=== PATIENT | male | born 1945 | race Caucasian/White ===

== ENCOUNTER → 2017-05-29 | Outpatient (CLI) | payer MEDICARE, OTHER ==
[~2017-05-29] MED LIST: ASCO-182 PO; CHOL200038 PO; CYAN25004 PO; DOC100 PO; ETAN50DI SQ; FEXO-72 PO; GLUC-198 PO; LORA10CA3 PO; LUTE20CA11 PO; MULT1CAP59 PO; OMEG1CAP35 PO; PER PO
[2017-05-29 10:52] LABS: PLATELET COUNT, AUTOMATED 212 K/uL (150-450)
== END ==
LOC: LAB 10:39
PROVIDERS: ATTEND Dermatology MOHS-Micrographic Surgery
DX: L40.0 Psoriasis vulgaris (principal)
CPT/HCPCS: 36415; 85025

== ENCOUNTER → 2017-11-12 | Outpatient (CLI) | payer MEDICARE, OTHER ==
[2017-11-12 12:58] LABS: PLATELET COUNT, AUTOMATED 215 K/uL (150-450)
== END ==
LOC: LAB 12:40
PROVIDERS: ATTEND Dermatology MOHS-Micrographic Surgery
DX: L40.0 Psoriasis vulgaris (principal)
CPT/HCPCS: 36415; 85025

== ENCOUNTER → 2017-12-03 | Outpatient (CLI) | payer MEDICARE, OTHER ==
[2017-12-03 07:34] LABS: PLATELET COUNT, AUTOMATED 189 K/uL (150-450)
--- NOTE | 2017-12-03 07:36 | EKG ---
FACILITY: [facility] - [place] PATIENT NAME: JAYSON LUTZ : [id number] MR: [id number] V: [id number] EXAM DATE: ORDERING PHYSICIAN: MIGUELITO GONZÁLES TECHNOLOGIST: DINORAH Pascual Reason : PREOP Blood Pressure : / mmHG Vent. Rate : 062 BPM Atrial Rate : 062 BPM P-R Int : 152 ms QRS Dur : 088 ms QT Int : 416 ms P-R-T Axes : 080 076 063 degrees QTc Int : 422 ms Sinus rhythm with occasional premature ventricular complexes Otherwise normal ECG No previous ECGs available Confirmed by Albino Corral ([id number]) on 12/03/2017 10:43:23 AM Referred By: Confirmed By:Albino Peralta
--- NOTE | 2017-12-03 08:11 | RADIOLOGY IMAGING REPORT ---
FAC[place] [facility] [place]IENT NAME: Henrry Bosch : 1945 MR: [id number] V: [id number] EXAM DATE: ORDERING PHYSICIAN: MIGUELITO GONZÁLES TECHNOLOGIST: Location: [facility] [place] Patient: Henrry Bosch : 1945 Visit/Account:[id number] Date of Sevice: 12/03/2017 Chest 2 views: HISTORY: Broke ribs 3 months ago. Recheck. No pain, shortness of breath or cough. COMPARISON: 09/07/2010. There are no other more recent priors. FINDINGS: Frontal and lateral chest: Cardiomediastinal silhouette is within normal limits. There is n o infiltrate or pleural effusion. No pneumothorax. Pulmonary vasculature is normal. Rib fractures are not well seen on this study. IMPRESSION: No evidence of acute cardiopulmonary abnormality. Rib fractures are not well demonstrated on this study. Report Dictated By: Melanie Cevallos MD at 12/03/2017 8:02 AM Report E-Signed By: Melanie Cevallos MD at 12/03/2017 8:07 AM WSN:[id number]
== END ==
LOC: RAD 07:09
PROVIDERS: ATTEND Orthopaedic Surgery Hand Surgery
DX: I49.3 Ventricular premature depolarization (principal); M25.561 Pain in right knee; M19.90 Unspecified osteoarthritis, unspecified site; Z01.812 Encounter for preprocedural laboratory examination
CPT/HCPCS: 36415; 71046; 81001; 82040; 82247; 82310; 82374; 82435; 82565; 82947; 84075; 84132; 84155; 84295; 84450; 84460; 84520; 85025; 93005

== ENCOUNTER 2017-12-27 03:00 | Inpatient (IN) | payer MEDICARE, OTHER ==
[2017-12-26 13:30] LABS: INR 1.01
[2017-12-27] VITALS (14 sets, daily range): BP systolic 118–169; BP diastolic 76–100
[~2017-12-27] VITALS: Ht 170.2 cm; Wt 61.7 kg
[~2017-12-27 03:00] MED LIST changes: +ACET-2146 PO; +FEXO-67 PO
--- NOTE | 2017-12-27 08:12 | RADIOLOGY IMAGING REPORT ---
[place] [facility] [place] Henrry Bosch : 1945 MR: [id number] V: [id number] EXAM DATE: ORDERING PHYSICIAN: MIGUELITO GONZÁLES TECHNOLOGIST: Location: [facility] - [place] Patient: Henrry Bosch : 1945 Visit/Account:[id number] Date of Sevice: 12/20/2017 Exam type: LEGS BILAT STANDING HIPS-ANKLE Indication: Preop right total knee arthroplasty Comparison: None available Findings: Right lower extremity: No acute fracture or dislocation identified of the pelvis, hip, knee, femur, tibia/fibula. Mild dege nerative changes within the right femoral acetabular joint. Moderate medial tibiofemoral compartment joint space loss. Mild/moderate osteophytosis within the knee. Ankle mortise is symmetric. No vis ualized pelvic tilt. Leg length appears symmetric. Moderate degenerative changes within the visuali zed lower lumbar spine. Left knee: No acute fracture or dislocation identified of the pelvis, hip, knee, femur, tibia/fibula. Mild dege nerative changes within the right femoral acetabular joint. Mild medial tibiofemoral compartment tad nt space loss. Mild osteophytosis within the knee. Ankle mortise is symmetric. No visualized pelvi c tilt. Leg length appears symmetric. Impression: 1. No acute fracture or dislocation of the bilateral lower extremities. 2. Moderate degenerative changes within the right knee. Mild degenerative changes within the left k nee. Report Dictated By: Srinivasa Fuentes MD at 12/27/2017 8:05 AM Report E-Signed By: Srinivasa Fuentes MD at 12/27/2017 8:09 AM WSN:[email or web address]
[2017-12-27] MEDS ORDERED: fentaNYL CITR 100 MCG/2 ML AMP ONE (10:18)
[2017-12-27] MEDS ORDERED: LIDOCAINE MPF 1% 5 ML VIAL ONE (10:19)
[2017-12-27] MEDS ORDERED: PROPOFOL EMUL(*) 10MG/ML 20 ML 20 ML ONE (10:19)
[2017-12-27] MEDS ORDERED: PREGABALIN 75 MG CAPSULE PO ONE (10:45)
[2017-12-27] MEDS ORDERED: MIDAZOLAM 2 MG/2 ML VIAL IVP PRN (10:45)
[2017-12-27] MEDS ORDERED: LIDOCAINE/SOD BICARB 8.4% SYR ID ONE (10:45)
[2017-12-27] MEDS ORDERED: CELECOXIB 200 MG CAP PO ONE (10:45)
[2017-12-27] MEDS ORDERED: ACETAMINOPHEN 500 MG TAB PO ONE (10:45)
[2017-12-27] MEDS ORDERED: VANCOMYCIN 1 GM ADDVIAL 1 GM in NS(*) 0.9% 250 ML ADDVAN BAG 250 ML IVPB ONE (10:45)
[2017-12-27] MEDS ORDERED: NORMOSOL R SOLN(*) 1000 ML BAG 1,000 ML IV PRN (10:45)
[2017-12-27] MEDS ORDERED: TRANEXAMIC AC 1000 MG/10ML SDV 1,000 MG in DEXTROSE 5% 50 ML BAG 50 ML IV ONE (10:45)
[2017-12-27] MEDS ORDERED: FAMOTIDINE 20 MG TAB PO ONE (10:45)
[2017-12-27] MEDS ORDERED: cloNIDine EPIDUR INJ 100MCG/ML 40 MCG, ROPIVACAINE 0.5% 20 ML VIAL 25 ML, EPINEPHrine H... INJ ONE (10:45)
[2017-12-27] MEDS ORDERED: DEXAMETHASONE SOD PHOS 10MG/ML ONE (11:31)
[2017-12-27] MEDS ORDERED: ONDANSETRON 4 MG/2 ML VIAL ONE (11:31)
[2017-12-27] MEDS ORDERED: EPINEPHrine HCL 1 MG/ML AMP ONE (11:45)
[2017-12-27] MEDS ORDERED: NALOXONE HCL 0.4 MG/ML VIAL IVP PRN (14:05)
[2017-12-27] MEDS ORDERED: KCL/D5LR 20 MEQ/1000 ML PREMIX 1,000 ML IV PRN (14:05)
[2017-12-27] MEDS ORDERED: ONDANSETRON 4 MG/2 ML VIAL IVP PRN (14:05)
[2017-12-27] MEDS ORDERED: ACETAMINOPHEN 500 MG TAB PO PRN (14:05)
[2017-12-27] MEDS ORDERED: FLUSH 10 ML SYR IVP PRN (14:05)
[2017-12-27] MEDS ORDERED: MORPHINE SULFATE 30 MG PCA IV PRN (14:05)
[2017-12-27] MEDS ORDERED: MAGNESIUM CITRATE 300 ML BTL PO PRN (14:05)
[2017-12-27] MEDS ORDERED: diphenhydrAMINE 25 MG CAP PO PRN (14:05)
[2017-12-27] MEDS ORDERED: PROMETHAZINE 25 MG/ML 1 ML AMP IVP PRN (14:05)
--- NOTE | 2017-12-27 14:12 | RADIOLOGY IMAGING REPORT ---
FACILITY: [facility] - [place] PATIENT NAME: Henrry Bosch : 1945 MR: [id number] V: [id number] EXAM DATE: ORDERING PHYSICIAN: MIGUELITO GONZÁLES TECHNOLOGIST: Location: [facility] - [place] Patient: Henrry Bosch : 1945 Visit/Account:[id number] Date of Sevice: 12/27/2017 KNEE LIMITED RIGHT Indication: Postop right total knee arthroplasty Comparison: None available Findings: 2 views of the right knee demonstrating postoperative changes from right knee arthroplasty. No visua lized hardware complication. Postoperative gas within and adjacent to the joint. IMPRESSION: Unremarkable postoperative appearance of right knee arthroplasty. Report Dictated By: Srinivasa Fuentes MD at 12/27/2017 2:06 PM Report E-Signed By: Srinivasa Fuentes MD at 12/27/2017 2:08 PM WSN:[email or web address]
--- NOTE | 2017-12-27 15:40 | Hospitalist Progress Note ---
Subjective Progress Notes Subjective Patient seen post-op. Reviewed PMHx (psoriasis on Enbrel) and medications. At present he denies any problems - no CP/SOB/N/V. Physical Exam Vital Signs Date Time Temp Pulse Resp B/P (MAP) Pulse Ox O2 Delivery O2 Flow Rate FiO2 12/27/17 14:30 48 12 98 12/27/17 09:41 97.1 163/84 (110) Room Air General Appearance: Alert, Awake Cardiovascular: Regular Rate and Rhythm Respiratory: Clear to Auscultation GI: Soft and Non-Tender Result Diagram: 12/27/17 1350 Assessment and Plan Problems: (1) S/P knee replacement Status: Acute Assessment & Plan: He appears to have tolerated OR/anesthesia well. He has no history of DVT/PE. He will be on aspirin 325mg daily for DVT prophylaxis. (2) Psoriasis Status: Chronic Assessment & Plan: He has been managed with Enbrel - he did not take this week's dose and is planning to hold the next 2-3 weeks as well. (3) Elevated blood pressure reading Status: Acute Assessment & Plan: He has had some modest elevation of his BPs post-op. He report no history of HTN, but has had elevated readings in his physician's office occasionally. Will monitor for now. SATNAM DIAZ MD Dec 27, 2017 15:40
--- NOTE | 2017-12-27 19:13 | OPERATIVE REPORT 1 ---
EVENT DATE: December 27, 2017 SURGEON: Mauro Serra MD ANESTHESIOLOGIST: Allan Covarrubias MD ANESTHESIA: General plus spinal. FINANCIAL PLANNING ASSISTANT: CHRISTIANO Youssef PREOPERATIVE DIAGNOSIS Right knee degenerative joint disease. POSTOPERATIVE DIAGNOSIS Right knee degenerative joint disease. PROCEDURE PERFORMED Right total knee arthroplasty (85917) ESTIMATED BLOOD LOSS 50 INTRAVENOUS FLUIDS Crystalloid 1500, no colloid. TOURNIQUET TIME 69 minutes SPECIMENS None. COMPLICATIONS No complications. IMPLANTS USED DePuy Attune 5 right side rotating platform, femur cut at 6 degrees with a 6 rotating platform tibia, a 35 anatomic patella, and a 5 mm x size 5 rotating platform insert, all cemented. SUMMARY OF PROCEDURE The patient was brought into the operating room and placed on the OR table in the supine position. He was then positioned for his spinal and then placed back in the supine position for a light general anesthetic. The right lower extremity was prepped and draped in the usual sterile fashion. The limb was exsanguinated, and the tourniquet was inflated. A standard anterior utilitarian incision was made, followed by medial parapatellar arthrotomy. The articular cartilage was in poor condition as we would expect. There was [id number] contact medially and in some small areas of the patellofemoral joint. The fluid was clear. We did a medial metaphyseal release that was fairly conservative at first. We had also resected the ACL and the patellofemoral ligament. We removed the tissue anteriorly at the distal femur which was quite thick and cut a small portion of the fat pad away. Intramedullary guidance of the femur followed. We cut 9 mm off the end at 6 degrees. We then measured for size, and it appeared a size 5 would be best. It was between a 5 and a 6. We made the initial check on a 6, but it was definitely too tall, so we put the 5 on and then did our first cuts anteriorly. There was no notching. We then cut our chamfers and removed some additional osteophyte. We checked the cut angle using the guide, and it was fine, so then we positioned the box office clerk and proceeded to prepare for the posterior stabilized element. With this in place, we checked the femoral fit. It was good, and therefore, we drilled with the femoral lug drills. We then moved on to the tibia. After first hyperflexing the knee, we did intramedullary guidance for the tibia and then made our first cut. There was quite a bit of eburnation on the medial side. We then trialed with the tibial component after preparing the tibial element, and it was still a bit tight on the medial side. We, therefore, did a more complete metaphyseal release like we would normally do for a varus knee, and that did help quite a bit. There was still a little bit of tightness in the MCL compared to the LCL, so I did a bit of release on the medial side using an 18-gauge needle to pie crust the medial collateral ligament. We then prepared the patella. We cut without the sj and then picked a 35 anatomic patella which fit well. With all these trials in place, the patella did not have a tendency to subluxate and to move smoothly. He had a slight tendency to stay in a flexion contracture. We, therefore, removed a little bit of the posterior capsular attachments and stripped this back with an osteotome, and this corrected most of this. The wound was irrigated. We removed implants, placed femoral block and tibial block to minimize cement extrusion, and then we also drilled the areas of eburnation with a 1.5 mm drill before irrigation. The second dose of TXA was given at the end of our cementation course, but initially cement was mixed, and we proceeded to cement starting with the tibia, moving to the femur, then the patella with a trial insert. We held extension locked and loaded until full polymerization with excess cement removed. At that time, the tourniquet was deflated at 69 minutes. We trialed again. I considered moving up on the insert, but because he had a tendency not to fully extend, although we certainly could get him to extend well all the way out to zero, it was not like he was loose in that fashion, so I did not want to go too thick on the insert. He did have slight lateral laxity. We went ahead with the final insert at size 5 and then irrigated one more time. Local anesthetic was given internally. We repaired the capsule and quadriceps mechanism using #1 Vicryl, followed by repeat irrigation, and then 3-0 Vicryl was used sparingly due to his extremely thin skin, and then we used a subcuticular closure with a Dermabond strip. He was awakened and transferred to the recovery area in stable condition. EVE
[2017-12-27] MEDS ORDERED: ASPIRIN 325 MG TAB PO ONE (21:00)
--- NOTE | 2017-12-28 06:18 | Hospitalist Progress Note ---
Subjective Progress Notes Subjective He reports doing well. Pain has been well controlled. Physical Exam Vital Signs Date Time Temp Pulse Resp B/P (MAP) Pulse Ox O2 Delivery O2 Flow Rate FiO2 12/28/17 05:50 72 16 94 Nasal Cannula 1.0 12/27/17 23:57 98.3 118/76 (90) Intake and Output 12/28/17 07:00 Intake Total 3540 ml Output Total 50 ml Balance 3490 ml Intake Oral 240 ml IV Total 1650 ml Other 1650 ml Output Estimated Blood Loss 50 ml General Appearance: Alert, Awake Cardiovascular: Regular Rate and Rhythm Respiratory: Clear to Auscultation Result Diagram: 12/27/17 1350 Assessment and Plan Problems: (1) S/P knee replacement Status: Acute Assessment & Plan: He appears to be stable post-op. He has no history of DVT/PE. He will be on aspirin 325mg daily for DVT prophylaxis. (2) Psoriasis Status: Chronic Assessment & Plan: He has been managed with Enbrel - he did not take this week's dose and is planning to hold the next 2-3 weeks as well. (3) Elevated blood pressure reading Status: Acute Assessment & Plan: He has had some modest elevation of his BPs post-op. He report no history of HTN, but has had elevated readings in his physician's office occasionally. BPs have been improved this AM. Would not start any treatment at this time. He will continue to monitor his BPs at home and follow up with his PCP. Exam Sepsis Risk: No Definite Risk SATNAM DIAZ MD Dec 28, 2017 06:18
[2017-12-28] MEDS ORDERED: ASPI-757 PO (06:19)
[2017-12-28 06:24] LABS: PLATELET COUNT, AUTOMATED 200 K/uL (150-450)
[2017-12-28 07:00] VITALS: BP 131/78
[2017-12-28] MEDS ORDERED: OXYC5TAB38 PO (08:55)
[2017-12-28] MEDS ORDERED: ASPIRIN 325 MG TAB PO SCH (09:00)
== END 2017-12-28 10:55 | disposition home or self-care (01) | DRG 554 ==
LOC: OR 03:00 → MED 15:20
PROVIDERS: ADMIT Orthopaedic Surgery Hand Surgery; ATTEND Orthopaedic Surgery Hand Surgery
DX: M17.11 Unilateral primary osteoarthritis, right knee (principal); L40.9 Psoriasis, unspecified; R03.0 Elevated blood-pressure reading, without diagnosis of hypertension
CPT/HCPCS: 36415; 77073; 85014; 85018; 85025; 85610; 86850; 86900; 86901; 97161; J0171; J0735; J1100; J1885; J2001; J2250; J2405; J2704; J2795; J3010; J3370; J3480; J7050; J7060

== ENCOUNTER → 2018-03-25 | Outpatient (CLI) | payer MEDICARE, OTHER ==
[~2018-03-25] MED LIST changes: +ASPI-757 PO; +OXYC5TAB38 PO
== END ==
LOC: AUD 08:30
PROVIDERS: ATTEND Family Medicine
DX: H90.41 Sensorineural hearing loss, unilateral, right ear, with unrestricted hearing on the contralateral side (principal)
CPT/HCPCS: 92552

== ENCOUNTER → 2018-05-16 | Outpatient (CLI) | payer MEDICARE, OTHER ==
[~2018-05-16] MED LIST changes: +ASPI81TA94 PO
[2018-05-16 13:33] LABS: PLATELET COUNT, AUTOMATED 224 K/uL (150-450)
== END ==
LOC: LAB 13:22
PROVIDERS: ATTEND Dermatology MOHS-Micrographic Surgery
DX: L40.0 Psoriasis vulgaris (principal)
CPT/HCPCS: 36415; 85025

== ENCOUNTER → 2018-05-26 | Outpatient (CLI) | payer MEDICARE, OTHER | LOC: LAB 09:51 | PROVIDERS: ATTEND Dermatology MOHS-Micrographic Surgery | DX: L40.9 Psoriasis, unspecified (principal); Z79.899 Other long term (current) drug therapy | CPT/HCPCS: 86580 ==